=== PATIENT | male | born 1950 | race Caucasian/White ===

== ENCOUNTER 2017-03-19 15:07 | Inpatient (IN) | payer OTHER ==
[~2017-03-19] VITALS: Ht 177.8 cm; Wt 110.9 kg
[~2017-03-19 15:07] MED LIST: ALPR0.5T6 PO; ASPI-496 PO; ASPI-515 PO; ATOR10TA PO; AZIT250T89 PO; BENZ100C4 PO; BUPR100T11 PO; CARV-39 PO; CARV12.543 PO; CHOL200024 PO; DIGO250T PO; DILT120C2 PO; DOXY100T PO; ENOX100S5 SQ; FURO-93 PO; FURO20TA3 PO; FURO40TA6 PO; HYDROCODONE PO; IBUPROFEN PO; IRBE150T25 PO; LISI-167 PO; LISI-170 PO; MAGN400T26 PO; METH4TAB2 PO; METO-95 PO; METO-99 PO; METO50TA82 PO; MULT-124 PO; NITR0.4T8 SL; OLME20TA PO; OMEG1CAP12 PO; OMEP-110 PO; POTA20TA14 PO; POTA20TA6 PO; POTA20TA89 PO; PRAV40TA2 PO; PROM5SYR PO; SIMV20TA3 PO; SPIR25TA3 PO; WARF2.5T PO; WARF5TAB PO; WARF7.5T6 PO-COUM
[2017-03-19] MEDS ORDERED: FUROSEMIDE 40 MG/4 ML IVP ONE (16:30)
[2017-03-19] MEDS ORDERED: SODIUM CHLORIDE FLUSH 10ML SYR IVF ONE (16:30)
[2017-03-19] MEDS ORDERED: FUROSEMIDE 40 MG/4 ML ONE (16:33)
[2017-03-19 16:48] LABS: BLOOD UREA NITROGEN 23 mg/dL (7-18)
[2017-03-19 16:51] LABS: IS PT STATUS REG ER OR PRE ER? YES
[2017-03-19] MEDS ORDERED: CEFTRIAXONE 1,000 MG in SODIUM CHLORIDE 0.9% 50 ML IVPB ONE (17:30)
[2017-03-19] MEDS ORDERED: HYDROcodone/APAP 5/325 TABLET PO PRN (18:00)
[2017-03-19] MEDS ORDERED: POLYETHYLENE GLYCOL 17 GM PACKET PO PRN (18:00)
[2017-03-19] MEDS ORDERED: DOCUSATE 100 MG CAPSULE PO PRN (18:00)
[2017-03-19] MEDS ORDERED: morphine SULFATE 10 MG/ML, 1ML IVPush PRN (18:00)
[2017-03-19] MEDS ORDERED: BISACODYL 10 MG SUPP PR PRN (18:00)
[2017-03-19] MEDS ORDERED: ONDANSETRON 2MG/ML, 2ML IVPush PRN (18:00)
[2017-03-19] MEDS ORDERED: ACETAMINOPHEN 325 MG TABLET PO PRN (18:00)
[2017-03-19] MEDS ORDERED: LABETALOL 5MG/ML 40ML VIAL IVPush PRN (18:00)
[2017-03-19 20:35] VITALS: BP 147/100
[2017-03-19 20:42] LABS: PATH.CAST-FLAG NOT PRESENT; SPERM-FLAG NOT PRESENT; SRC-FLAG NOT PRESENT; XTAL-FLAG NOT PRESENT; YLC-FLAG NOT PRESENT
[2017-03-19] MEDS: SODIUM CHLORIDE FLUSH 3ML SYRINGE IVF SCH (21:00)
[2017-03-19 22:29] LABS: IS PT STATUS REG ER OR PRE ER? NO
[2017-03-19] MEDS: POTASSIUM CHLORIDE 20 MEQ TAB.ER.PRT PO SCH (22:31)
[2017-03-19] MEDS: MAGNESIUM OXIDE 400 MG TABLET PO SCH (22:31)
[2017-03-19] MEDS: PRAVASTATIN 40 MG TABLET PO SCH (22:31)
[2017-03-20 02:33] VITALS: BP 126/82
[2017-03-20 05:45] LABS: BLOOD UREA NITROGEN 21 mg/dL (7-18)
[2017-03-20] MEDS: METOPROLOL SUCCINATE 100 MG TAB.ER.24H PO SCH (06:23)
[2017-03-20 06:54] VITALS: BP 160/89
[2017-03-20] MEDS ORDERED: POTASSIUM CHLORIDE 20 MEQ TAB.ER.PRT PO ONE (07:30)
[2017-03-20] MEDS: POTASSIUM CHLORIDE 20 MEQ TAB.ER.PRT PO SCH ×2 (08:00→17:40)
[2017-03-20] MEDS: IRBESARTAN 150 MG TABLET PO SCH (08:05)
[2017-03-20] MEDS: DILTIAZEM 120 MG CAP.ER.24H PO SCH (08:05)
[2017-03-20] MEDS: MAGNESIUM OXIDE 400 MG TABLET PO SCH ×2 (08:05→22:30)
[2017-03-20] MEDS: BUPROPION 100 MG TABLET PO SCH (08:06)
[2017-03-20] MEDS: ASPIRIN 81 MG TABLET EC PO SCH (08:06)
[2017-03-20] MEDS: SODIUM CHLORIDE FLUSH 3ML SYRINGE IVF SCH ×2 (08:07→21:00)
[2017-03-20] MEDS ORDERED: FUROSEMIDE 40 MG/4 ML IV SCH (09:00)
[2017-03-20] MEDS ORDERED: WARFARIN 5 MG TABLET PO-COUM SCH (09:00)
[2017-03-20 13:16] VITALS: BP 132/83
[2017-03-20 19:19] VITALS: BP 130/79
[2017-03-20 20:00] VITALS: BP 117/72
[2017-03-20] MEDS: FUROSEMIDE 40 MG/4 ML IV SCH (22:30)
[2017-03-20] MEDS: PRAVASTATIN 40 MG TABLET PO SCH (22:30)
[2017-03-21 02:00] VITALS: BP 122/83
[2017-03-21 05:43] LABS: BLOOD UREA NITROGEN 20 mg/dL (7-18)
[2017-03-21 06:21] VITALS: BP 151/85
[2017-03-21] MEDS: METOPROLOL SUCCINATE 100 MG TAB.ER.24H PO SCH (06:22)
[2017-03-21] MEDS: IRBESARTAN 150 MG TABLET PO SCH (08:55)
[2017-03-21] MEDS: DILTIAZEM 120 MG CAP.ER.24H PO SCH (08:55)
[2017-03-21] MEDS: BUPROPION 100 MG TABLET PO SCH (08:55)
[2017-03-21] MEDS: ASPIRIN 81 MG TABLET EC PO SCH (08:55)
[2017-03-21] MEDS: MAGNESIUM OXIDE 400 MG TABLET PO SCH ×2 (08:56→21:20)
[2017-03-21] MEDS: FUROSEMIDE 40 MG/4 ML IV SCH ×2 (08:56→21:21)
[2017-03-21] MEDS: POTASSIUM CHLORIDE 20 MEQ TAB.ER.PRT PO SCH ×2 (08:56→17:26)
[2017-03-21] MEDS: SODIUM CHLORIDE FLUSH 3ML SYRINGE IVF SCH ×2 (08:56→21:00)
[2017-03-21 12:25] VITALS: BP 125/86
[2017-03-21] MEDS ORDERED: WARFARIN 1 MG TABLET PO-COUM ONE (18:00)
[2017-03-21 18:24] VITALS: BP 146/84
[2017-03-21] MEDS: PRAVASTATIN 40 MG TABLET PO SCH (21:20)
[2017-03-22 01:39] VITALS: BP 156/98
[2017-03-22] MEDS: METOPROLOL SUCCINATE 100 MG TAB.ER.24H PO SCH (05:03)
[2017-03-22 06:01] LABS: BLOOD UREA NITROGEN 17 mg/dL (7-18)
[2017-03-22 07:32] VITALS: BP 142/86
[2017-03-22] MEDS: SODIUM CHLORIDE FLUSH 3ML SYRINGE IVF SCH ×2 (09:00→20:09)
[2017-03-22] MEDS: ASPIRIN 81 MG TABLET EC PO SCH (09:03)
[2017-03-22] MEDS: DILTIAZEM 120 MG CAP.ER.24H PO SCH (09:03)
[2017-03-22] MEDS: FUROSEMIDE 40 MG/4 ML IV SCH ×2 (09:03→20:08)
[2017-03-22] MEDS: IRBESARTAN 150 MG TABLET PO SCH (09:03)
[2017-03-22] MEDS: BUPROPION 100 MG TABLET PO SCH (09:03)
[2017-03-22] MEDS: MAGNESIUM OXIDE 400 MG TABLET PO SCH ×2 (09:03→20:08)
[2017-03-22] MEDS: POTASSIUM CHLORIDE 20 MEQ TAB.ER.PRT PO SCH ×3 (09:03→20:08)
[2017-03-22 16:37] VITALS: BP 142/98
[2017-03-22] MEDS ORDERED: WARFARIN 3 MG TABLET PO-COUM ONE (18:00)
[2017-03-22 18:35] VITALS: BP 186/87
[2017-03-22] MEDS: PRAVASTATIN 40 MG TABLET PO SCH (20:09)
[2017-03-23 01:56] VITALS: BP 160/89
[2017-03-23 06:00] LABS: BLOOD UREA NITROGEN 14 mg/dL (7-18)
[2017-03-23] MEDS: METOPROLOL SUCCINATE 100 MG TAB.ER.24H PO SCH (06:01)
[2017-03-23 07:00] VITALS: BP 143/100
[2017-03-23] MEDS: POTASSIUM CHLORIDE 20 MEQ TAB.ER.PRT PO SCH ×3 (08:42→20:57)
[2017-03-23] MEDS: IRBESARTAN 150 MG TABLET PO SCH (08:43)
[2017-03-23] MEDS: MAGNESIUM OXIDE 400 MG TABLET PO SCH ×2 (08:43→20:57)
[2017-03-23] MEDS: ASPIRIN 81 MG TABLET EC PO SCH (08:43)
[2017-03-23] MEDS: BUPROPION 100 MG TABLET PO SCH (08:43)
[2017-03-23] MEDS: DILTIAZEM 120 MG CAP.ER.24H PO SCH (08:43)
[2017-03-23] MEDS: FUROSEMIDE 40 MG/4 ML IV SCH (08:44)
[2017-03-23] MEDS: SODIUM CHLORIDE FLUSH 3ML SYRINGE IVF SCH ×2 (08:57→20:58)
[2017-03-23] MEDS: DOCUSATE 100 MG CAPSULE PO SCH ×2 (09:28→23:54)
[2017-03-23 13:21] VITALS: BP 123/82
[2017-03-23 16:02] LABS: IS PT STATUS REG ER OR PRE ER? NO
[2017-03-23] MEDS: FUROSEMIDE 40 MG TABLET PO SCH (17:26)
[2017-03-23] MEDS ORDERED: WARFARIN 3 MG TABLET PO-COUM SCH (18:00)
[2017-03-23 18:55] VITALS: BP 134/76
[2017-03-23] MEDS: PRAVASTATIN 40 MG TABLET PO SCH (20:57)
[2017-03-23 21:39] LABS: IS PT STATUS REG ER OR PRE ER? NO
[2017-03-24 02:05] VITALS: BP 148/93
[2017-03-24 05:48] LABS: BLOOD UREA NITROGEN 15 mg/dL (7-18)
[2017-03-24 05:49] LABS: IS PT STATUS REG ER OR PRE ER? NO
[2017-03-24] MEDS: FUROSEMIDE 40 MG TABLET PO SCH (08:11)
[2017-03-24] MEDS: ASPIRIN 81 MG TABLET EC PO SCH (08:11)
[2017-03-24] MEDS: DILTIAZEM 120 MG CAP.ER.24H PO SCH (08:11)
[2017-03-24] MEDS: MAGNESIUM OXIDE 400 MG TABLET PO SCH (08:11)
[2017-03-24] MEDS: POTASSIUM CHLORIDE 20 MEQ TAB.ER.PRT PO SCH (08:11)
[2017-03-24] MEDS: IRBESARTAN 150 MG TABLET PO SCH (08:12)
[2017-03-24] MEDS: METOPROLOL SUCCINATE 100 MG TAB.ER.24H PO SCH (08:12)
[2017-03-24] MEDS: BUPROPION 100 MG TABLET PO SCH (08:12)
[2017-03-24] MEDS: SODIUM CHLORIDE FLUSH 3ML SYRINGE IVF SCH (08:13)
[2017-03-24 08:18] VITALS: BP 170/135
[2017-03-24] MEDS ORDERED: FURO40TA6 PO (10:41)
[2017-03-24] MEDS ORDERED: DOCU-30 PO (10:41)
[2017-03-24] MEDS ORDERED: POTA20TA6 PO (10:41)
[2017-03-24] MEDS ORDERED: WARF3TAB PO-COUM (10:41)
[2017-03-24] MEDS ORDERED: WARFARIN 3 MG TABLET PO-COUM SCH (18:00)
== END 2017-03-24 15:30 | disposition home health service (06) | DRG 291 ==
LOC: ED 15:37 → EDIP 18:45 → 4WST 19:03
PROVIDERS: ADMIT Internal Medicine; ATTEND Internal Medicine
DX: I13.0 Hypertensive heart and chronic kidney disease with heart failure and stage 1 through stage 4 chronic kidney disease, or unspecified chronic kidney disease (principal); I50.43 Acute on chronic combined systolic (congestive) and diastolic (congestive) heart failure; N17.9 Acute kidney failure, unspecified; D68.69 Other thrombophilia; E44.0 Moderate protein-calorie malnutrition; R31.9 Hematuria, unspecified; Z90.5 Acquired absence of kidney; Z85.528 Personal history of other malignant neoplasm of kidney; Z79.01 Long term (current) use of anticoagulants; N18.3 Chronic kidney disease, stage 3 (moderate); E11.22 Type 2 diabetes mellitus with diabetic chronic kidney disease; I48.91 Unspecified atrial fibrillation; E78.5 Hyperlipidemia, unspecified; E66.9 Obesity, unspecified; Z95.2 Presence of prosthetic heart valve; Z82.49 Family history of ischemic heart disease and other diseases of the circulatory system; Z86.718 Personal history of other venous thrombosis and embolism; E78.00 Pure hypercholesterolemia, unspecified; K21.9 Gastro-esophageal reflux disease without esophagitis; Z87.442 Personal history of urinary calculi; I48.2 Chronic atrial fibrillation; Z68.35 Body mass index [BMI] 35.0-35.9, adult
CPT/HCPCS: 36415; 71010; 76770; 80048; 81001; 82040; 82436; 82570; 83605; 83735; 83880; 84133; 84145; 84300; 84484; 85025; 85610; 87040; 87077; 87086; 87186; 93005; 96374; J0696; J1940; J2405